=== PATIENT | male | born 1960 ===

== ENCOUNTER 2017-12-16 23:13 | Emergency (ER) | payer MEDICAID ==
--- NOTE | 2017-12-16 23:55 | C.PDOC ---
History Of Present Illness <Keron Solis - Last Filed: 12/17/17 00:17> <Peter Johnson - Last Filed: 12/17/17 05:17> 57yo male, brought to ER by EMS for evaluation as patient was found sleeping outside. Currently, patient admits to alcohol use and offers no medical complaints. NO fever, chills, chest pain, shortness of breath or abdominal pain. Denies any trauma or injury as well. (Keron Solis) History Per: Patient, EMS Modifying Factor(s): Alcohol <Keron Solis - Last Filed: 12/17/17 00:17> <Peter Johnson - Last Filed: 12/17/17 05:17> Time Seen by Provider: 12/16/17 23:31 Chief Complaint (Nursing): Substance Abuse Past Medical History Reviewed: Historical Data, Nursing Documentation, Vital Signs - Medical History PMH: No Chronic Diseases Surgical History: No Surg Hx Family History: States: No Known Family Hx - Social History Hx Alcohol Use: Yes Hx Substance Use: No <Keron Solis - Last Filed: 12/17/17 00:17> Vital Signs: Last Vital Signs Temp 97.6 F 12/17/17 04:24 Pulse 62 12/17/17 04:24 Resp 16 12/17/17 04:24 BP 113/73 12/17/17 04:24 Pulse Ox 95 12/17/17 04:24 Review Of Systems Except As Marked, All Systems Reviewed And Found Negative. Constitutional: Negative for: Fever, Chills Cardiovascular: Negative for: Chest Pain Respiratory: Negative for: Shortness of Breath Gastrointestinal: Negative for: Abdominal Pain Psych: Positive for: Other (alcohol use) <Keron Solis - Last Filed: 12/17/17 00:17> Physical Exam - Physical Exam Appears: No Acute Distress Skin: Normal Color Head: Atraumatic, Normacephalic Eye(s): bilateral: Normal Inspection Oral Mucosa: Other (alcohol on breath) Neck: Supple Chest: Symmetrical Cardiovascular: Rhythm Regular Respiratory: Normal Breath Sounds Gastrointestinal/Abdominal: Soft, No Tenderness Neurological/Psych: Other (sleeping but easily arousable) Gait: Unsteady <Keron Solis - Last Filed: 12/17/17 00:17> ED Course And Treatment O2 Sat by Pulse Oximetry: 97 (RA) Pulse Ox Interpretation: Normal <Keron Solis - Last Filed: 12/17/17 00:17> Progress Note: Pt is now AAOx3. Steady gait. Clinically sober. Reevaluation Time: 05:17 Reassessment Condition: Improved <Peter Johnson E - Last Filed: 12/17/17 05:17> Medical Decision Making <Keron Solis - Last Filed: 12/17/17 00:17> <Peter Johnson E - Last Filed: 12/17/17 05:17> Medical Decision Making: Impression: Alcohol intoxication Plan: -- Glucose POC Patient resting in bed comfortably, currently pending clinical sobriety. pt endorsed to material handler 1st shift pending reassessment, clinical sobriety and final dispo (Keron Solis) Disposition <Keron Solis - Last Filed: 12/17/17 00:17> Counseled Patient/Family Regarding: Diagnosis, Need For Followup - Disposition Disposition Time: 05: <Peter Johnson - Last Filed: 12/17/17 05:17> - Disposition Referrals: [facility] [Outside] Disposition: HOME/ ROUTINE Condition: IMPROVED Additional Instructions: Follow up with your doctor or in the clinic. Return to the ER if you develop worsening of symptoms or if you have any other concerns. Instructions: Alcohol Abuse and Alcoholism (DC) Print Language: URDU - Clinical Impression Clinical Impression: Alcohol abuse - Scribe Statement The provider has reviewed the documentation as recorded by the Scribe (Mikaela West) <Keron Solis - Last Filed: 12/17/17 00:17> <Peter Johnson E - Last Filed: 12/17/17 05:17> - Scribe Statement Provider Attestation: All medical record entries made by the Scribe were at my direction and personally dictated by me. I have reviewed the chart and agree that the record accurately reflects my personal performance of the history, physical exam, medical decision making, and the department course for this patient. I have also personally directed, reviewed, and agree with the discharge instructions and disposition. (Keron Solis)
[2017-12-17 02:04] VITALS: PULSE 62; O2SAT 95
[2017-12-17 04:25] VITALS: BP 113/73; RESP 16; TEMP 97.6
== END 2017-12-17 05:19 | disposition home or self-care (01) ==
LOC: C.ER 23:13
DX: F10.10 Alcohol abuse, uncomplicated (principal); Y90.9 Presence of alcohol in blood, level not specified